=== PATIENT | male | born 1945 | race Two or more races ===

== ENCOUNTER → 2019-07-16 | Outpatient (CLI) | payer MEDICARE, OTHER ==
--- NOTE | 2019-07-16 11:05 | CARD ---
MR#: [id number] Date of Study: 07/16/2019 Ordering Physician: MARIMAR NOEL, Referring Physician: MARIMAR NOEL, Tech: Radha Moore JHONATAN APPROVED REPORT EXAM: Two-dimensional and M-mode echocardiogram with Doppler and color Doppler. Other Information Quality : AverageHR: 64bpm Rhythm : NSR INDICATION CAD 2D DIMENSIONS RVDd3.2 (2.9-3.5cm)Left Atrium(2D)4.9 (1.6-4.0cm) IVSd1.5 (0.7-1.1cm)Aortic Root(2D)3.1 (2.0-3.7cm) LVDd5.2 (3.9-5.9cm)LVOT Diameter2.0 (1.8-2.4cm) PWd1.3 (0.7-1.1cm)LVDs3.7 (2.5-4.0cm) FS (%) 29.1 %SV71.4 ml LVEF(%)55.5 (>50%) M-Mode DIMENSIONS Left Atrium(MM)5.32 (2.5-4.0cm)Aortic Root3.30 (2.2-3.7cm) Aortic Valve AoV Peak Justin.172.0cm/sAoV VTI31.1cm AO Peak GR.11.8mmHgLVOT Peak Justin.85.9cm/s LVOT VTI 20.97cmAO Mean GR.6mmHg ROBINSON (VMAX)1.98hy7OJE (VTI)2.17cm2 Mitral Valve MV E Lrcuykfu233.2cm/sMV E Peak Gr.86mmHg MV DECEL [id number] A Qzznxllr80.3cm/s E/A Ratio3.7 Pulmonary Valve PV Peak Qkqsdxoe696.0cm/sPV Peak Grad.7mmHg Tricuspid Valve TR P. Xhakpdlb949yp/sRAP [id number] TR Peak Gr.48yiBiYYKE91dvAp LEFT VENTRICLE The left ventricle is normal size. There is mild to moderate concentric left ventricular hypertrophy. The left ventricular systolic function is normal. The Ejection Fraction is 55-60%. There is normal L V segmental wall motion. Transmitral Doppler flow pattern is Grade III-reversible restrictive diastol ic dysfunction. RIGHT VENTRICLE The right ventricle is normal size. There is normal right ventricular wall thickness. The right ventr icular systolic function is normal. ATRIA The left atrium is moderately dilated. The right atrium is moderately dilated. The interatrial septum is intact with no evidence for an atrial septal defect or patent foramen ovale as noted on 2-D or Do ppler imaging. AORTIC VALVE The aortic valve is mildly calcified. The aortic valve is trileaflet. Doppler and Color Flow revealed no significant aortic regurgitation. There is no significant aortic valvular stenosis. There is no a ortic valvular vegetation. MITRAL VALVE The mitral valve is thickened but opens well. There is no evidence of mitral valve prolapse. There is no mitral valve stenosis. Doppler and Color-flow revealed mild to moderate mitral regurgitation. TRICUSPID VALVE The tricuspid valve is normal in structure and function. Doppler and Color Flow revealed mild tricusp id regurgitation. There is moderate pulmonary hypertension. The PA pressure was estimated at 64 mmHg. There is no tricuspid valve prolapse or vegetation. There is no tricuspid valve stenosis. PULMONIC VALVE The pulmonic valve is not well visualized. GREAT VESSELS The aortic root is normal in size. The ascending aorta is Mildly dilated. The IVC is normal in size a nd collapses >50% with inspiration. PERICARDIAL EFFUSION There is no evidence of significant pericardial effusion. Critical Notification Critical Value: No <Conclusion> The left ventricular systolic function is normal. The Ejection Fraction is 55-60%. There is normal LV segmental wall motion. Transmitral Doppler flow pattern is Grade III-reversible restrictive diastolic dysfunction. The left atrium is moderately dilated. Mild to moderate mitral regurgitation. Mild tricuspid regurgitation. There is moderate pulmonary hypertension. The PA pressure was estimated at 64 mmHg. There is no evidence of significant pericardial effusion. Signed by : Miller Castañeda, Electronically Approved : 07/16/2019 11:04:48
== END | disposition home or self-care (01) ==
LOC: ECHO 09:48
PROVIDERS: ATTEND Internal Medicine Cardiovascular Disease
DX: I08.3 Combined rheumatic disorders of mitral, aortic and tricuspid valves (principal); I27.20 Pulmonary hypertension, unspecified; I25.10 Atherosclerotic heart disease of native coronary artery without angina pectoris
CPT/HCPCS: 93306